=== PATIENT | female | born 1960 | race Caucasian/White ===

== ENCOUNTER → 2017-12-18 | Outpatient (CLI) | payer OTHER ==
[2017-12-18 10:19] LABS: T4, Free (Free Thyroxine) 1.11 ng/dL (0.78-2.19)
--- NOTE | 2017-12-18 11:30 | US ---
EXAMINATION TYPE: US thyroid st tissue head/neck DATE OF EXAM: 12/18/2017 COMPARISON: None at this time CLINICAL HISTORY: 57-year-old female E05.90 Thyrotoxicosis. TECHNIQUE: Multiple sonographic images of the thyroid gland are obtained. FINDINGS: GLAND SIZE: Right Lobe: 5.4 x 2.4 x 2.2 cm Overall Parenchyma: heterogenous Left Lobe: 5.2 x 2.6 x 1.7 cm Overall Parenchyma: heterogeneous Isthmus Thickness: 0.4 cm NODULES RIGHT: # of nodules measured on right: Multiple subcentimeter nodules throughout right thyroid LEFT: # of nodules measured on left: 4 1. 1.1 X 0.7 x 0.8 cm hypoechoic solid nodule at the mid pole with poorly defined margins; present with microcalcifications. This nodule is taller than wide and shows intranodular vascularity. Prior size: No prior 2. 1.3 X 0.9 x 0.6 cm hypoechoic solid nodule at the upper pole with well-defined margins; . This n odule is wider than tall and shows no intranodular vascularity. Prior size: No prior 3. 1.2 X 0.8 x 0.9 cm hypoechoic solid nodule at the lower pole with irregular margins; . This nodu le is taller than wide and shows no intranodular vascularity. Prior size: No prior 4. 1.3 X 0.8 x 1.0 cm hypoechoic mixed nodule at the mid pole with well-defined margins; . This nod ule is taller than wide and shows intranodular vascularity. Prior size: No prior ISTHMUS: # of nodules measured in the isthmus: 0 Bilateral neck scanned, no evidence of lymphadenopathy. Multiple subcentimeter nodules throughout right and left thyroid, Largest nodules on left measured ab ove. IMPRESSION: 1. Suspect multinodular goiter. 2. Numerous bilateral subcentimeter nodules. 3. 4 dominant nodules on the left ranging from 1.1 to 1.3 cm are either solid or complex solid cystic .
--- NOTE | 2017-12-19 12:12 | NM ---
EXAMINATION TYPE: NM thyroid image w uptake DATE OF EXAM: 12/19/2017 COMPARISON: Ultrasound from yesterday HISTORY: Thyrotoxicosis per order. Subclinical hyperthyroidism. Symptoms of difficulty swallowing and thyroid swelling per patient. TECHNIQUE: Thyroid iodine uptake is calculated and images performed after the oral administration of 304 uCi 1-123 Capsule. FINDINGS: There is fairly normal distribution of activity throughout the gland. The 4 hour iodine up take is calculated at 11% (normal range 8-14%). The 24-hour iodine uptake is calculated at 24% (sigifredo l range 15-35%). IMPRESSION: Normal thyroid scan and uptake.
== END ==
LOC: RADNMMAIN 09:14
PROVIDERS: ATTEND Internal Medicine Endocrinology, Diabetes & Metabolism
DX: E04.2 Nontoxic multinodular goiter (principal); E05.90 Thyrotoxicosis, unspecified without thyrotoxic crisis or storm
CPT/HCPCS: 36415; 76536; 78014; 84439; 84443; 84445; 84480

== ENCOUNTER → 2017-12-19 | Outpatient (CLI) | payer OTHER ==
--- NOTE | 2017-12-19 14:38 | MM ---
Reason for exam: screening (asymptomatic). Last mammogram was performed 4 years and 11 months ago. History: Patient is postmenopausal, is of Ashkenazi Congregational descent, and is nulliparous. Family history of breast cancer in maternal grandmother, breast cancer in maternal aunt, and breast cancer in maternal cousin. Physical Findings: A clinical breast exam by your physician is recommended on an annual basis and results should be correlated with mammographic findings. MG 3D Screening Mammo W/Cad Bilateral CC and MLO view(s) were taken. Prior study comparison: January 09, 2013, bilateral digital screening mammo w/CAD. July 25, 2007, mammogram, performed at [facility] [place]. The breast tissue is heterogeneously dense. This may lower the sensitivity of mammography. There is a new highly suspicious 1.8cm mass at middle posterior dept in the upper outer quadrant. 3mm anterior to the index mass there is a 5mm mass. 6mm posterior to the index mass there is a 1.4cm group of calcifications, new from the prior. No suspicious abnormality on the right breast. ASSESSMENT: Incomplete: need additional imaging evaluation, BI-RAD 0 RECOMMENDATION: Special view mammogram of the left breast. If lesion persists on supplemental views, image directed ultrasound is recommended. [facility] will attempt to contact patient to return for supplemental views and ultrasound if indicated.
== END ==
LOC: RADMAMWWP 09:56
PROVIDERS: ATTEND Family Medicine
DX: Z12.31 Encounter for screening mammogram for malignant neoplasm of breast (principal); Z78.0 Asymptomatic menopausal state
CPT/HCPCS: 77063; 77067

== ENCOUNTER → 2017-12-27 | Outpatient (CLI) | payer OTHER ==
--- NOTE | 2017-12-31 10:42 | MM ---
Reason for exam: additional evaluation requested from abnormal screening. Last mammogram was performed less than 1 month ago. History: Patient is postmenopausal, is of Ashkenazi Quaker descent, and is nulliparous. Family history of breast cancer in maternal grandmother, breast cancer in maternal aunt at age 40, and breast cancer in maternal cousin. Physical Findings: Nurse Summary: 3cm nodule in the left breast at 2:30 (nurse dw). MG 3D Work Up W/Cad LT Spot compression CC, spot compression MLO, CC with magnification, ML with magnification, and ML view(s) were taken of the left breast. Prior study comparison: December 19, 2017, bilateral MG 3d screening mammo w/cad. January 09, 2013, bilateral digital screening mammo w/CAD. There are scattered fibroglandular densities. Finding #1: There is an intermediate concern, suspicious high density, microlobulated round mass located 5 cm from the nipple in the upper outer quadrant, middle position of the left breast. Finding #2: There are intermediate concern, suspicious heterogeneous, grouped/clustered calcifications in the upper outer quadrant of the left breast 7cm from the nipple. These results were verbally communicated with the patient and result sheet given to the patient on 12/27/17. ASSESSMENT: Incomplete: need additional imaging evaluation, BI-RAD 0 RECOMMENDATION: Ultrasound of the left breast.
--- NOTE | 2017-12-31 10:45 | USB ---
Reason for exam: additional evaluation requested from abnormal screening. History: Patient is postmenopausal, is of Ashkenazi Roman Catholic descent, and is nulliparous. Family history of breast cancer in maternal grandmother, breast cancer in maternal aunt at age 40, and breast cancer in maternal cousin. US Breast Workup Limited LT Left limited breast ultrasound including focal area of concern, retroareolar and axilla demonstrates a 1.5 x 1.4 x 1.6cm lobular, irregular, solid, vascular lesion at 2 o'clock, correlates with mammographic findings. These results were verbally communicated with the patient and result sheet given to the patient on 12/27/17. ASSESSMENT: Highly suggestive of malignancy, BI-RAD 5 RECOMMENDATION: Surgical consultation of the left breast. Stereotactic core biopsy of the left breast. (calcifications) Ultrasound core biopsy of the left breast. (after calcification biopsy by stereo) Called Dr. Wu's office with mammographic findings and has scheduled an appointment for the patient for 01/30/18 at 9:[address] Muñiz. Biopsy scheduled for 01/09/18 at 10:00. PRELIMINARY REPORT CALLED AND FAXED TO DR. MUÑIZ ON 12/31/17.
== END | disposition home or self-care (01) ==
LOC: RADMAMWWP 06:54
PROVIDERS: ATTEND Family Medicine
DX: R92.8 Other abnormal and inconclusive findings on diagnostic imaging of breast (principal)
CPT/HCPCS: 77061; 77065

== ENCOUNTER → 2018-01-09 | Day surgery (SDC) | payer OTHER ==
[2018-01-09 11:50] VITALS: RESP 14; TEMP 98.1; BMI 22.6
[2018-01-09 12:00] VITALS: BP 165/97; PULSE 84
--- NOTE | 2018-01-09 18:13 | MM ---
EXAMINATION TYPE: MG stereo VAD BX LT DATE OF EXAM: 01/09/2018 COMPARISON: 12/28/2019 CLINICAL HISTORY: Abnormal mammogram TECHNIQUE: Stereotactic guided core biopsy of left breast, 2 locations. FINDINGS: The procedure of stereotactic guided core biopsy was explained to the patient. Benefits, alternatives, and risks were discussed. An informed consent was then obtained. [facility] was [facility]. Shortness pathway was lateral approach. Procedure was targeted and performed by Dr. Pathak. Calcifications were targeted. The skin and deeper breast tissue was anesthetized with 1% lidocaine with epinephrine. 5 core samples were obtained. Sample was evaluated and had calcifications within the sample. Clip was placed biopsy site. There was some postprocedure bleeding. Good hemostasis was obtained with direct pressure. The mass was targeted. Skin and deeper breast tissue was anesthetized with 1% lidocaine with epinephrine. 6 core samples were obtained. Clip was placed at the biopsy site. Good hemostasis was obtained with direct pressure. Patient tolerated the procedure well. Discharge instructions were discussed with the patient. The patient will follow-up with her physician for results. IMPRESSION: 1. Successful biopsy left breast calcifications. 2. Successful biopsy left breast mass. Recommendations: 1. Recommendations are pending pathology results two locations. Pathology Results: Malignant A. 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 See Surgical Pathology Cancer Case Summary. B. BREAST, LEFT, SITE B, CORE BIOPSY: Invasive poorly differentiated ductal carcinoma. See Surgical Pathology Cancer Case Summary. Recommendation Surgical consult of the left breast. EMMA
--- NOTE | 2018-01-14 08:50 | MM ---
MG Stereo VAD BX Addl LT EXAMINATION TYPE: MG stereo VAD BX LT DATE OF EXAM: 01/09/2018 COMPARISON: 12/28/2019 CLINICAL HISTORY: Abnormal mammogram TECHNIQUE: Stereotactic guided core biopsy of left breast, 2 locations. FINDINGS: The procedure of stereotactic guided core biopsy was explained to the patient. Benefits, alternatives, and risks were discussed. An informed consent was then obtained. The shortness pathway for biopsy was chosen. Shortness pathway was lateral approach. Procedure was targeted and performed by Dr. Pathak. Calcifications were targeted. The skin and deeper breast tissue was anesthetized with 1% lidocaine with epinephrine. 5 core samples were obtained. Sample was evaluated and had calcifications within the sample. Clip was placed biopsy site. There was some postprocedure bleeding. Good hemostasis was obtained with direct pressure. The mass was targeted. Skin and deeper breast tissue was anesthetized with 1% lidocaine with epinephrine. 6 core samples were obtained. Clip was placed at the biopsy site. Good hemostasis was obtained with direct pressure. Patient tolerated the procedure well. Discharge instructions were discussed with the patient. The patient will follow-up with her physician for results. IMPRESSION: 1. Successful biopsy left breast calcifications. 2. Successful biopsy left breast mass. Recommendations: 1. Recommendations are pending pathology results two locations. Pathology Results: Malignant A. 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 See Surgical Pathology Cancer Case Summary. B. BREAST, LEFT, SITE B, CORE BIOPSY: Invasive poorly differentiated ductal carcinoma. See Surgical Pathology Cancer Case Summary. RECOMMENDATION: Surgical consultation of the left breast. EMMA
== END ==
LOC: RADPROWWP 08:39 → EDSTATUS 10:00
PROVIDERS: ATTEND Surgery
DX: C50.412 Malignant neoplasm of upper-outer quadrant of left female breast (principal); Z80.3 Family history of malignant neoplasm of breast
CPT/HCPCS: 88305; 19081; 19082; A4648

== ENCOUNTER → 2018-01-23 | Outpatient (CLI) | payer OTHER ==
--- NOTE | 2018-01-24 09:51 | BMR ---
EXAMINATION TYPE: MR breast BILAT wo/w con DATE OF EXAM: 01/23/2018 COMPARISON: Three-D bilateral breast screening mammogram December 19, 2017 BI-RADS 0. Three-D diagnostic l eft breast mammogram December 27, 2017 BI-RADS 0. Diagnostic left breast ultrasound December 27, 2017 BI-RADS 5 . HISTORY: Left breast cancer newly diagnosed on stereotactic guided core biopsy January 09, 2018 CONTRAST: Multiplanar, multisequence images of the breasts were acquired utilizing 6.5 mL intravenous Gadavist gadolinium contrast. TECHNIQUE: A series of fat and water weighted images in the long and short axis views of both breasts are obtained in conjunction with dynamic contrast MRI with subtraction technique. Three-dimensional and additional postprocessing imaging is created on independent workstation and reviewed during offi cial interpretation of this study. FINDINGS: Scattered fibroglandular tissue is redemonstrated throughout both breasts most prominent la teral aspect of both nipples anterior depth. Post contrast images show fairly mild symmetric background enhancement. No suspicious intramammary ad enopathy is identified. No suspicious cystic lesions are seen bilaterally. With regard to the right breast no pathologic enhancement is present. There are benign-appearing righ t axillary lymph nodes seen. Chest wall is intact. With regard to the left breast there is oval well-circumscribed post procedure hematoma in the wire mesh filter fabricator ior depth outer quadrant above level of nipple measuring roughly 1.6 x 1.5 cm image [address] inferior anterior and lateral to this there is artifact from biopsy clip seen best subtraction coral ge 194 series 702 this is along medial margin of an area of spiculated masslike enhancement that benjamin ures 2.2 x AP 1.5 cm transverse by roughly 1.8 cm craniocaudal dimension estimated 7.2 cm distance fr om nipple by computer 7:00 position. Measurements slightly larger than identified on ultrasound. Ther e is second enhancing slightly spiculated 4 mm nodule along the anterior inferior medial margin of th is seen best image 224 series 702 which corresponds to area of mammogram abnormality. There is additi onal tiny 3 mm nodule along posterior medial margin near level of biopsy clip image 194 series 702. T here is artifact from second biopsy clip along the lateral margin of the post procedure hematoma imag e 230 series 702 corresponding to the group of calcifications. No suspicious residual enhancement at this level is seen. No suspicious residual calcifications are noted on postprocedure mammogram after stereotactic biopsy. Remainder of left breast shows no additional area of multicentric pathologic enhancement. No suspicio us skin thickening is seen. There are prominent but predominantly subcentimeter left axillary lymph n odes, largest is borderline in the medial inferior aspect adjacent to pectoralis muscle seen best coral ge 32 series 301 measuring 11 x 8 mm. IMPRESSION: Biopsy-proven malignant lesion is redemonstrated. MRI findings correlate with recent mamm ogram and ultrasound. Post procedure hematoma noted. No multicentric neoplasm or area suspicious for neoplasm in the right breast. BI-RADS 2 benign findings right breast BI-RADS 6 biopsy-proven malignancy left breast Recommendation: Appropriate surgical management newly diagnosed left breast neoplasm.
== END | disposition home or self-care (01) ==
LOC: RADMRIMAIN 10:09
PROVIDERS: ATTEND Surgery
DX: C50.412 Malignant neoplasm of upper-outer quadrant of left female breast (principal); L76.31 Postprocedural hematoma of skin and subcutaneous tissue following a dermatologic procedure
CPT/HCPCS: 77059; 0159T; A9581

== ENCOUNTER → 2018-02-07 | Day surgery (SDC) | payer OTHER ==
[2018-02-03 15:56] VITALS: BMI 22.6
[~2018-02-07] MED LIST: ALPRAZolam 0.5 MG TAB PO ONE; DEXAMETHASONE SOD PHOSPHATE 10 MG/ML 1 ML VIAL IV ONE; HEPARIN SODIUM,PORCINE 5,000 UNIT/ML 1 ML VIAL SQ ONE; HYDROcodone/APAP 5-325MG 1 EACH TAB PO ONE; HYDROcodone/APAP 5-325MG 1 EACH TAB PO PRN; HYDROmorphone (PF) 1 MG/ML ONE; HYDROmorphone 0.5 MG/0.5 ML SYRINGE IVP PRN; KETOROLAC 30 MG/ML 1 ML VIAL IVP ONE; LACTATED RINGERS 1,000 ML IV ONE; LACTATED RINGERS 1,000 ML IV SCH; LIDOCAINE 1% 20 ML VIAL (10MG/ML) FOR IV START INTRADERMA PRN; LIDOCAINE 1% INJ 10MG/ML (20 ML MDV) ONE; LIDOCAINE 1% INJ 10MG/ML (20 ML MDV) SQ ONE; METHYLENE BLUE 10 MG/ML (10 ML VIAL) INJ ONE; MIDAZOLAM 2 MG/2 ML VIAL IV PRN; MIDAZOLAM 2 MG/2 ML VIAL ONE; NALOXONE 0.4 MG/ML 1 ML VIAL IV PRN; ONDANSETRON 4 MG/2 ML VIAL IVP ONE; PROPOFOL 10 MG/ML 20 ML VIAL IV ONE; Pre Op ABX Message 1 EACH MISC MISCELLANE ONE; SCOPOLAMINE 1.5MG/72HR PATCH TRANSDERM ONE; SODIUM BICARB 4% 5 ML VIAL (0.48 MEQ/ML) MISCELLANE ONE; ceFAZolin 2,000 MG in DEXTROSE/WATER 1 50ML.BAG IVPB ONE; ceFAZolin IN SWFI 2 GM/20 ML SYRINGE IVP ONE; ePHEDrine SULFATE/0.9% NACL/PF 50 MG/5 ML SYRINGE IV ONE; fentaNYL (PF) 50 MCG/ML 2 ML AMP ONE
[2018-02-07 07:12] VITALS: RESP 16
--- NOTE | 2018-02-07 07:47 | P.HPADDEND ---
H&P Addendum H&P Addendum Date: 02/07/18 Patient here today for left breast lumpectomy. Patient had recent biopsy showing poorly differentiated invasive ductal cancer. Upon review of her films these 2 areas seem to be confluent. We'll proceed with left breast lumpectomy with wire localization and sentinel lymph node biopsy with injection. Possible completion axillary node dissection. The risks of bleeding, infection, recurrence, potential need for additional surgery, seroma, scarring, pain, wound formation, nerve injury, lymphedema were discussed. She understands and wishes to proceed.
--- NOTE | 2018-02-07 11:16 | NM ---
EXAMINATION TYPE: NM sentinel node injection DATE OF EXAM: 02/07/2018 COMPARISON: NONE HISTORY: Left breast cancer TECHNIQUE AND FINDINGS: The procedure of sentinel lymph node injection was explained to the patient. The benefits, alternatives, and risks were discussed. An informed consent was then obtained. Overlying skin is cleaned with sterile alcohol. Following this, 530 uCi Tc99m Tilmanocept was inject ed into upper outer quadrant position surrounding the left nipple intradermally. The patient tolerated the procedure well without any immediate complication. The patient was kept in the radiology department for short stay after the procedure and then taken to surgery for surgical p rocedure what is presumed intraoperative gamma probe will be used for sentinel lymph node detection. IMPRESSION: Left breast radiotracer injection for sentinel node localization as above.
[2018-02-07 11:28] VITALS: TEMP 97.7
--- NOTE | 2018-02-07 11:40 | P.OP ---
Date of Procedure: 02/07/18 Procedure(s) Performed: PREOPERATIVE DIAGNOSIS: Left breast cancer POSTOPERATIVE DIAGNOSIS: Same PROCEDURE: Left Breast wire localization lumpectomy with sentinel lymph node biopsy SURGEON: Mary Kay EBL: Minimal ANESTHESIA: General COMPLICATIONS: None OPERATIVE PROCEDURE: Patient was placed on the operating room table in the supine position. 2 mL of methylene blue was injected into the subareolar space. The breast was then massaged for 5 minutes. The left axilla was addressed at that time. The hot spot in the right axilla was identified. A small curvilinear incision was made using the scalpel. Dissection down through the subcutaneous tissues took place using electrocautery. Using the neoprobe I identified a total of 1 sentinel lymph node. This had a normal appearance and size. No additional lymph nodes were identified within the axilla. Frozen section revealed a small 1.5 mm micrometastasis. The case was discussed with oncology. We decided not to proceed with axillary node dissection. No bleeding was seen. The subcutaneous tissues were closed using 3-0 Vicryl sutures. The skin was closed using 4-0 Monocryl sutures. The patient had 2 wires entering the breast at 3:00. An incision was made adjacent to the more lateral wire. As I was dissecting beneath the skin I felt that the tumor was very close to the skin at the site of the second wire. I decided to remove an elliptical portion of skin where the tumor was most superficial. I then dissected circumferentially around the wire sites and the full mass circumferentially. Dissection took place at our deepest extent down to the chest wall. Clips were used to demarcate the lumpectomy cavity. The breast tissue was elevated off of the fascia medially and laterally so that the lumpectomy cavity could be properly closed. Once this took place the subcutaneous tissues were closed using 3-0 Vicryl sutures. The skin was closed using a running 4-0 Monocryl stitch. Dermabond and tape was applied. The lumpectomy specimen was then painted the 6 appropriate colors. A specimen radiograph confirmed both clips within the specimen. DISPOSITION: Stable to recovery room
[2018-02-07 13:18] VITALS: BP 131/72; PULSE 89
--- NOTE | 2018-02-11 16:24 | MM ---
EXAMINATION TYPE: MG pre op needle loc LT, MG surgical specimen LT DATE OF EXAM: 02/07/2018 COMPARISON: MR breast 01/23/2018 CLINICAL HISTORY: Abnormal mammogram TECHNIQUE: Needle localization with wire placement and surgical excision of area of concern in the left breast. FINDINGS: The procedure of needle localization with wire placement and than surgical excision was explained to the patient. Benefits, alternatives, and risks were discussed. An informed consent was then obtained. Using mammographic technique the lesions were identified. The overlying skin was prepped and draped in usual sterile fashion. Lidocaine buffered with bicarbonate was used as anesthetic into the skin and subcutaneous tissue up to the level of area of concern. A 5 cm and 7 cm needle were used. Were advanced. Subsequent 90 degrees mammogram show the needle to be in satisfactory position relative to the targeted area. At this point, wires were placed and the needles withdrawn. The wire was fixed to patient's skin. Images were marked for surgeon. The patient tolerated the procedure well without any immediate complication. The patient was kept in the radiology department for short stay after the procedure and then taken to surgery for surgical excision. Masses and wires are identified in specimen mammogram. The patient was kept in hospital for short stay after the procedure and then discharged home in stable condition. IMPRESSION: Successful, uncomplicated needle localization with wire placements and surgical excision of masses and markers in the left breast, full pathology results to follow. Pathology Results: Malignant A. SENTINEL LYMPH NODE #1, LEFT BREAST, EXCISION: Positive for micrometastatic adenocarcinoma in node parenchyma and subcapsular sinus areas. B. LEFT BREAST, LUMPECTOMY: Invasive poorly differentiated duct carcinoma with microscopic foci of residual duct carcinoma in situ. A second 1.6 cm focus of poorly differentiated infiltrating duct carcinoma is identified away from origin biopsy cavity. The second nodule of invasive carcinoma is approximately 0.65 cm away from the anterior blue inked margin of resection immediately adjacent to skin and approximately 4.5 mm from the purple inked posterior margin of resection. See Surgical Pathology Cancer Case Summary. Recommendation Appropriate oncologic/radiation management. MTDD
== END ==
LOC: OR 06:54
PROVIDERS: ATTEND Surgery
DX: C50.412 Malignant neoplasm of upper-outer quadrant of left female breast (principal); C77.3 Secondary and unspecified malignant neoplasm of axilla and upper limb lymph nodes; Z80.3 Family history of malignant neoplasm of breast; Z79.2 Long term (current) use of antibiotics
CPT/HCPCS: 19301; 38525; 88342; 88331; 88307; 88341; 76098; 19281; 38792; A9520; J2250; J1100; J2405; J2001; Q9968; J3010; J1885; J1170 ×2; J2704; J0690

== ENCOUNTER → 2018-06-12 | Outpatient (CLI) | payer OTHER ==
--- NOTE | 2018-06-12 14:34 | US ---
EXAMINATION TYPE: US venous doppler duplex UE LT DATE OF EXAM: 06/12/2018 COMPARISON: NONE CLINICAL HISTORY: M79.622 Pain lt arm, R22.32 Swelling lt arm. Left arm pain. No swelling or redness . No hx of DVT. On aspirin. SIDE PERFORMED: Left Left Arm: Negative for DVT Grayscale, color doppler, spectral doppler imaging performed of the deep veins of the left upper extr emity. There is normal flow, compressibility and vascular waveforms. IMPRESSION: No ultrasound evidence for acute deep or superficial vein thrombus in the left upper extr emity.
== END | disposition home or self-care (01) ==
LOC: RADUSWWP 13:23
PROVIDERS: ATTEND Internal Medicine Hematology & Oncology
DX: M79.622 Pain in left upper arm (principal); R22.32 Localized swelling, mass and lump, left upper limb

== ENCOUNTER → 2018-08-22 | Outpatient (CLI) | payer OTHER ==
--- NOTE | 2018-08-22 17:03 | BD ---
EXAMINATION TYPE: Axial Bone Density DATE OF EXAM: 08/22/2018 COMPARISON: NONE CLINICAL HISTORY: Height: 65 Weight: 150.4 FRAX RISK QUESTIONS: Alcohol (3 or more units per day): no Family History (Parent hip fracture): no Glucocorticoids (More than 3mos): no (Ex: prednisone, prednisolone, methylprednisolone, dexamethasone, and hydrocortisone). History of Fracture in Adulthood: yes Secondary Osteoporosis: 1. Type 1 Diabetes: no 2. Hyperthyroidism: no 3. Menopause before 45: no 4. Malnutrition: no 5. Chronic liver disease: no Rheumatoid Arthritis: no Current Tobacco Use: no RISK FACTORS HISTORY OF: Family History of Osteoporosis: yes Active: yes Diet low in dairy products/other sources of calcium: yes Postmenopausal woman: age48 Lost more than 2 inches in height since high school: no MEDICATIONS: Additional History: pt finished chemo and radiation treatments in -18 for breast cancer EXAM MEASUREMENTS: Bone mineral densitometry was performed using the Cantimer System. Bone mineral density as measured about the Lumbar spine is: ----- L1-L4(G/cm2): 0.969 T Score Values are as follows: ----- L2: -1.2 ----- L3: -1.9 ----- L4: -2.8 ----- L1-L4: -1.8 Bone mineral density : baseline Bone mineral density about the R hip (g/cm2): 0.730 Bone mineral density about the L hip (g/cm2): 0.672 T Score values are as follows: -----R Neck: -2.2 -----L Neck: -2.6 -----R Total: -1.5 -----L Total: -1.9 Bone mineral density : baseline IMPRESSION: Osteoporosis (T Score less than -2.5). There is increased fracture risk and therapy is usually indicated based on age. Re-Screen 1-2 years. NOTE: T-SCORE=SD OF THE YOUNG ADULT MEAN.
== END | disposition home or self-care (01) ==
LOC: RADBDWWP 07:38
PROVIDERS: ATTEND Internal Medicine Hematology & Oncology
DX: M81.0 Age-related osteoporosis without current pathological fracture (principal); N95.1 Menopausal and female climacteric states; C50.412 Malignant neoplasm of upper-outer quadrant of left female breast; Z79.890 Hormone replacement therapy
CPT/HCPCS: 77080

== ENCOUNTER → 2019-01-21 | Outpatient (CLI) | payer OTHER ==
--- NOTE | 2019-01-21 08:05 | MM ---
Reason for exam: additional evaluation requested from abnormal screening. Last mammogram was performed 1 year and 1 month ago. History: Patient is postmenopausal, has history of breast cancer at age 57, is of Ashkenazi Confucianism descent, and is nulliparous. Family history of breast cancer in maternal grandmother, breast cancer in maternal aunt at age 40, and breast cancer in maternal cousin. Malignant MG pre op needle loc LT of the left breast, February 07, 2018. Lumpectomy of the left breast, February 07, 2018. Malignant MG stereo VAD BX addl LT of the left breast, January 09, 2018. Malignant MG stereo VAD BX LT of the left breast, January 09, 2018. Taking estrogen beginning at age 58. Physical Findings: Nurse did not find any significant physical abnormalities on exam. MG 3D Diag Mammo W/Cad ROSIE Bilateral CC and MLO view(s) were taken. Prior study comparison: December 27, 2017, left breast MG 3d work up w/cad LT. December 19, 2017, bilateral MG 3d screening mammo w/cad. The breast tissue is heterogeneously dense. This may lower the sensitivity of mammography. Finding: Architectural distortion in the upper outer quadrant of the left breast consistent with surgery. Left skin thickening. These results were verbally communicated with the patient and result sheet given to the patient on 01/21/19. ASSESSMENT: Benign, BI-RAD 2 RECOMMENDATION: Follow-up diagnostic mammogram of both breasts in 1 year.
== END | disposition home or self-care (01) ==
LOC: RADMAMWWP 06:44
PROVIDERS: ATTEND Internal Medicine Hematology & Oncology
DX: Z85.3 Personal history of malignant neoplasm of breast (principal)
CPT/HCPCS: 77062; 77066

== ENCOUNTER → 2020-01-26 | Outpatient (CLI) | payer OTHER ==
--- NOTE | 2020-01-26 09:18 | MM ---
Reason for exam: additional evaluation requested from prior study. Last mammogram was performed 1 year ago. History: Patient is postmenopausal, has history of breast cancer at age 57, is of Ashkenazi Yazidism descent, and is nulliparous. Family history of breast cancer in maternal grandmother, breast cancer in maternal aunt at age 40, and breast cancer in maternal cousin. Malignant MG pre op needle loc LT of the left breast, February 07, 2018. Lumpectomy of the left breast, February 07, 2018. Malignant MG stereo VAD BX addl LT of the left breast, January 09, 2018. Malignant MG stereo VAD BX LT of the left breast, January 09, 2018. Taking estrogen for 2 years beginning at age 58. Physical Findings: Nurse did not find any significant physical abnormalities on exam. MG 3D Diag Mammo W/Cad ROSIE Bilateral CC and MLO view(s) were taken. Prior study comparison: January 21, 2019, bilateral MG 3d diag mammo w/cad ROSIE. December 27, 2017, left breast MG 3d work up w/cad LT. The breast tissue is heterogeneously dense. This may lower the sensitivity of mammography. Finding #1: There is stable thick architectural distortion in the upper outer quadrant of the left breast consistent with known lumpectomy and treatment changes. Finding #2: There are dystrophic calcifications in the subareolar position of the left breast. There is no discrete abnormality. These results were verbally communicated with the patient and result sheet given to the patient on 01/26/20. ASSESSMENT: Benign, BI-RAD 2 RECOMMENDATION: Follow-up diagnostic mammogram of both breasts in 1 year.
== END | disposition home or self-care (01) ==
LOC: RADMAMWWP 08:14
PROVIDERS: ATTEND Internal Medicine Hematology & Oncology
DX: Z85.3 Personal history of malignant neoplasm of breast (principal)
CPT/HCPCS: 77062; 77066

== ENCOUNTER 2020-04-13 10:28 | Emergency (ER) | payer OTHER ==
[2020-04-13 10:40] VITALS: BP 145/89; PULSE 110; RESP 16; TEMP 98.4
[2020-04-13] MEDS ORDERED: HYDROcodone/APAP 5-325MG 1 EACH TAB PO STA (10:47)
--- NOTE | 2020-04-13 11:10 | XR ---
EXAMINATION TYPE: XR chest 2V DATE OF EXAM: 04/13/2020 COMPARISON: 01/09/2013 HISTORY: 59-year-old female fall and left rib pain TECHNIQUE: PA and lateral views FINDINGS: The cardiomediastinal silhouette, aorta, and pulmonary vasculature are within normal limits. Lungs an d pleural spaces are clear. Surgical clips in the left axilla. No consolidation, pneumothorax, or ple ural effusion. No evident displaced left rib fracture. Anterior wedging of a vertebral body at the th oracolumbar junction is new as compared to 01/09/2013 but several age indeterminate. IMPRESSION: 1. No acute cardiopulmonary process. 2. Anterior wedging of a vertebral body at the thoracolumbar junction is new from 2012 but still age indeterminate. Clinically correlate.
--- NOTE | 2020-04-13 11:12 | XR ---
EXAMINATION TYPE: XR wrist complete LT DATE OF EXAM: 04/13/2020 COMPARISON: NONE HISTORY: 59-year-old female with pain after fall and injury TECHNIQUE: 3 views FINDINGS: Moderate degenerative change of the first CMC joint. Corticated bone fragment at the ulnar styloid pr ocess could represent an accessory ossicle or sequela of remote injury. There is a comminuted fracture of the distal radial metaphysis and epiphysis with intra-articular ext ension. Mild regional displacement of the volar fracture fragments but no significant incongruence of the articular surface. Slight impaction with a positive ulnar variance and generalized soft tissue s welling. IMPRESSION: 1. Comminuted, mildly impacted fracture of the distal radial metaphysis and epiphysis with intra-fidel cular extension into the radiocarpal joint. Mild displacement of a volar fracture fragment. 2. 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
[2020-04-13] MEDS ORDERED: ACET/COD 300 MG/30 MG STARTER PACK 6 TAB BTL PO STA (11:57)
--- NOTE | 2020-04-13 11:58 | ED ---
Upper Extremity HPI - General Chief Complaint: Extremity Injury, Upper Stated Complaint: Fall Left hand injury Time Seen by Provider: 04/13/20 10:35 Source: patient, RN notes reviewed Mode of arrival: ambulatory Limitations: no limitations - History of Present Illness Initial Comments: This a 59-year-old female presents emergency Department chief complaint of fall. Patient states she fell yesterday walking. Patient states that his left wrist pain, left rib pain no head neck or back pain. Denies any bowel bladder incontinence or retention. Her difficulty in really no hip pain or lower extremity injury. - Related Data Home Medications Medication Instructions Recorded Confirmed Amoxicillin 875 mg PO Q12HR 02/03/18 02/07/18 Previous Rx's Medication Instructions Recorded Hydrocodone/Acetaminophen [Muir 1 - 2 each PO Q4HR PRN #12 tab 02/07/18 5-325] Allergies Allergy/AdvReac Type Severity Reaction Status Date / Time No Known Allergies Allergy Verified 04/13/20 10:37 Review of Systems ROS Statement: Those systems with pertinent positive or pertinent negative responses have been documented in the HPI. ROS Other: All systems not noted in ROS Statement are negative. Past Medical History Past Medical History: Cancer Additional Past Medical History / Comment(s): current ear sx with antibiotics,c hronic ear problems,lt breast carcinoma, [place] syndrome History of Any Multi-Drug Resistant Organisms: None Reported Past Surgical History: Orthopedic Surgery Additional Past Surgical History / Comment(s): 1982 ear surgery-removal styloid bone Past Anesthesia/Blood Transfusion Reactions: Postoperative Nausea & Vomiting (PONV) Past Psychological History: No Psychological Hx Reported Smoking Status: Never smoker Past Alcohol Use History: Daily Past Drug Use History: Marijuana - Past Family History Mother Family Medical History: Myocardial Infarction ([place]) General Exam Limitations: no limitations General appearance: alert, in no apparent distress Head exam: Present: atraumatic, normocephalic, normal inspection Neck exam: Present: normal inspection, full ROM. Absent: tenderness, meningismus, lymphadenopathy Respiratory exam: Present: normal lung sounds bilaterally, chest wall tenderness (Mild anterior to lateral left). Absent: respiratory distress, wheezes, rales, rhonchi, stridor Cardiovascular Exam: Present: normal rhythm, tachycardia, normal heart sounds. Absent: systolic murmur, diastolic murmur, rubs, gallop, clicks GI/Abdominal exam: Present: soft, normal bowel sounds. Absent: distended, tenderness, guarding, rebound, rigid Extremities exam: Present: other (Left wrist, hand there is moderate swelling ne urovascular intact patient has range of motion of all digits. There is no proximal forearm tenderness remaining extremity exam within normal limits) Back exam: Present: full ROM. Absent: tenderness, paraspinal tenderness, vertebral tenderness Neurological exam: Present: alert, oriented X3, CN II-XII intact, reflexes normal. Absent: motor sensory deficit Skin exam: Present: warm, dry, intact, normal color. Absent: rash Course Vital Signs 04/13/20 10:37 Temperature 98.4 F Pulse Rate 110 H Respiratory 16 Rate Blood Pressure 145/89 O2 Sat by Pulse 100 Oximetry Procedures - Orthopedic Splinting/Casting Injury #1 Side: left Upper Extremity Injury Location: short arm, wrist Upper Extremity Immobilizer: volar splint, synthetic pre-padded splint Medical Decision Making - Medical Decision Making X-ray shows comminuted fracture left distal radius, x-ray of the ribs do not show any evidence of pneumothorax or obvious rib fracture. There is a change and possible wedge deformity though she has no vertebral tenderness and no complaint of back pain. Disposition Clinical Impression: Fracture of left distal radius Disposition: HOME SELF-CARE Condition: Stable Instructions (If sedation given, give patient instructions): Arm Fracture in Adults (ED) Additional Instructions: Please return to the Emergency Department if symptoms worsen or any other concerns. Is patient prescribed a controlled substance at d/c from ED?: No Referrals: Humble Wu DO [Primary Care Provider] - 1-2 days Adalberto Blair MD [STAFF PHYSICIAN] - 1-2 days Time of Disposition: 11:58
== END 2020-04-13 12:07 | disposition home or self-care (01) ==
LOC: EC 10:28
DX: S52.502A Unspecified fracture of the lower end of left radius, initial encounter for closed fracture (principal); Z85.3 Personal history of malignant neoplasm of breast; W01.0XXA Fall on same level from slipping, tripping and stumbling without subsequent striking against object, initial encounter; Y93.01 Activity, walking, marching and hiking
CPT/HCPCS: 29125; 71046; 99283

== ENCOUNTER → 2020-04-14 | Outpatient (CLI) | payer OTHER ==
--- NOTE | 2020-04-14 13:33 | CT ---
EXAMINATION TYPE: CT wrist LT wo con DATE OF EXAM: 04/14/2020 COMPARISON: Left wrist x-ray from yesterday. HISTORY: Left wrist pain post injury, intra-articular distal radial comminuted fracture. CT DLP: 265.3 mGycm Automated exposure control for dose reduction was used. FINDINGS: Overlying splint material is now present. There is acute comminuted minimally displaced intra-articular fracture through the distal radial meta -epiphysis. There is a 10 x 8 mm nondisplaced fracture fragment along the ulnar volar aspect axial im age 41. There are a few tiny fracture fragments along the dorsal aspect. No significant step off or i mpaction of the articular surface of the distal radius with the scaphoid and lunate is identified. There is well-corticated 3 mm ossific density from the ulnar styloid could reflect old avulsion type fracture or accessory ossicle redemonstrated. Carpal joint spaces are maintained. Mild to moderate narrowing and spurring at base of first metacarp al redemonstrated. Mild to moderate subcutaneous edema and soft tissue swelling greatest over the wrist joint through th e carpal bones and proximal hand and more prominent along the dorsal surface. There is additional sub cutaneous edema and soft tissue swelling along the distal ulnar diaphysis volar surface of the distal radius. Small foci of air along the dorsal aspect of the distal forearm are also noted. IMPRESSION: As above.
== END | disposition home or self-care (01) ==
LOC: RADCTMAIN 12:23
PROVIDERS: ATTEND Orthopaedic Surgery
DX: M25.532 Pain in left wrist (principal); S52.572A Other intraarticular fracture of lower end of left radius, initial encounter for closed fracture

== ENCOUNTER → 2020-08-24 | Outpatient (CLI) | payer OTHER ==
--- NOTE | 2020-08-24 15:17 | BD ---
EXAMINATION TYPE: Axial Bone Density DATE OF EXAM: 08/24/2020 COMPARISON: NONE CLINICAL HISTORY: 60 YR OLD FEMALE.....ICD-10 CODE: Z79.890 POST MENOPAUSAL Height: 64.4 Weight: 140 FRAX RISK QUESTIONS: History of Fracture in Adulthood: YES RISK FACTORS HISTORY OF: History of Wrist Fracture: LT WRIST, 2019 Family History of Osteoporosis: PATERNAL GRANDMOTHER Active: YES Diet low in dairy products/other sources of calcium: YES Postmenopausal woman: YES AT 45 YRS OLD Hyperparathyroidism: NO Adrenal Insufficiency: NO MEDICATIONS: Prednisone or other steroids: ONLY IN THE PAST Additional Medications: HX OF LT BREAST CA, HX OF CHEMO AND RADIATION, 2018, VIT D AND CALCIUM, LETR OZOLE Additional History: HX OF LT BREAST LUMPECTOMY, CA, 2018 EXAM MEASUREMENTS: Bone mineral densitometry was performed using the [employer] System. Bone mineral density as measured about the Lumbar spine is: ----- L1-L4(G/cm2): 1.039 T Score Values are as follows: ----- L1: -0.3 ----- L2: -0.6 ----- L3: -1.5 ----- L4: -2.0 ----- L1-L4: -1.2 Bone mineral density FIRST BONE DENSITY......BASELINE STUDY Bone mineral density about the R hip (g/cm2): 0.805 Bone mineral density about the L hip (g/cm2): 0.760 T Score values are as follows: -----R Neck: -2.1 -----L Neck: -2.3 -----R Total: -1.6 -----L Total: -2.0 Bone mineral density BASELINE STUDY FRAX%s: THERE IS A 18.3% CHANCE FOR A MAJOR OSTEOPOROTIC FX AND A 3.1% FOR HIP......PROBABILITY FO R FX IN 10 YRS TIME IMPRESSION: Osteopenia (T Score between -2.5 and -1). There is slightly increased risk of fracture and the patient may be considered for treatment. Re-Screen 2-5 years. NOTE: T-SCORE=SD OF THE YOUNG ADULT MEAN.
== END | disposition home or self-care (01) ==
LOC: RADBDWWP 09:37
PROVIDERS: ATTEND Internal Medicine Hematology & Oncology
DX: C50.412 Malignant neoplasm of upper-outer quadrant of left female breast (principal); M85.80 Other specified disorders of bone density and structure, unspecified site; Z79.890 Hormone replacement therapy
CPT/HCPCS: 77080

== ENCOUNTER → 2021-01-27 | Outpatient (CLI) | payer OTHER ==
--- NOTE | 2021-01-27 12:06 | MM ---
Reason for exam: additional evaluation requested from prior study. Last mammogram was performed 1 year ago. History: Patient is postmenopausal, has history of breast cancer at age 57, is of Ashkenazi Orthodox descent, and is nulliparous. Family history of breast cancer in maternal grandmother, breast cancer in maternal aunt at age 40, and breast cancer in maternal cousin. Malignant MG pre op needle loc LT of the left breast, February 07, 2018. Lumpectomy of the left breast, February 07, 2018. Malignant MG stereo VAD BX addl LT of the left breast, January 09, 2018. Malignant MG stereo VAD BX LT of the left breast, January 09, 2018. Taking estrogen for 2 years beginning at age 58. Physical Findings: Nurse did not find any significant physical abnormalities on exam. MG 3D Diag Mammo W/Cad ROSIE Bilateral CC and MLO view(s) were taken. Prior study comparison: January 26, 2020, bilateral MG 3d diag mammo w/cad ROSIE. January 21, 2019, bilateral MG 3d diag mammo w/cad ROSIE. There are scattered fibroglandular densities. Left post lumpectomy and radiation change. These results were verbally communicated with the patient and result sheet given to the patient on 01/27/21. ASSESSMENT: Benign, BI-RAD 2 RECOMMENDATION: Follow-up diagnostic mammogram of both breasts in 1 year.
== END | disposition home or self-care (01) ==
LOC: RADMAMWWP 10:53
PROVIDERS: ATTEND Internal Medicine Hematology & Oncology
DX: N64.89 Other specified disorders of breast (principal); Z78.0 Asymptomatic menopausal state; Z80.3 Family history of malignant neoplasm of breast; Z85.3 Personal history of malignant neoplasm of breast
CPT/HCPCS: 77062; 77066

== ENCOUNTER → 2021-07-19 | Outpatient (CLI) | payer MEDICARE, OTHER ==
--- NOTE | 2021-07-19 09:03 | CT ---
EXAMINATION TYPE: CT iac w con DATE OF EXAM: 07/19/2021 COMPARISON: NONE HISTORY: Hearing loss bilateral per order. Symptoms of headache and history of breast cancer. CT DLP: 150.00 mGycm. Automated Exposure Control for Dose Reduction was Utilized. TECHNIQUE: CT scan of internal auditory canal is performed with IV contrast, thin cut axial images ar e obtained, coronal reformatted images are also reviewed. Patient injected with 100 cc of Isovue-300 for the study. FINDINGS: The external auditory canals are patent bilaterally. Mastoid air cells show no evidence of abnormal opacification bilaterally. The middle ear ossicles are symmetric and unremarkable. There is no evidence of suspicious surroundi ng soft tissue density to suggest cholesteatoma. The scutum is preserved bilaterally. The cochlea and the semicircular canals are symmetric and unremarkable. Satisfactory ossific coverin g of the superior semicircular canals bilaterally is present. Vestibular aqueduct and internal caroti d canal appear unremarkable. Mild peripheral calcified plaque of the distal internal carotid arterie s bilaterally incidentally noted. No suspicious enhancement or enhancing masses present. Temporomandibular joints are maintained bilaterally. Visualized paranasal sinuses are grossly clear. Visualized portion brain parenchyma is felt within normal limits. The nasal septum slightly deviated to left of midline. IMPRESSION: No significant abnormality seen to account for patient's symptoms.
== END | disposition home or self-care (01) ==
LOC: RADCTMAIN 07:24
PROVIDERS: ATTEND Otolaryngology
DX: H91.93 Unspecified hearing loss, bilateral (principal); R51.9 Headache, unspecified; Z85.3 Personal history of malignant neoplasm of breast
CPT/HCPCS: 70481; Q9967

== ENCOUNTER → 2022-01-29 | Outpatient (CLI) | payer MEDICARE, OTHER ==
--- NOTE | 2022-01-30 20:18 | MM ---
Reason for Exam: Screening (asymptomatic). Last screening mammogram was performed 12 month(s) ago. Patient History: Menarche at age 20. Patient has no children. Postmenopausal. Breast cancer, left, age 57. Previous DCIS pathology result. Ashkenazi Denominational. Previous chest radiation therapy at age 57. Previous chemotherapy at age 57. Currently using Estrogen, beginning at age 58 for 2 years. 02/07/2018, Lumpectomy on the Left side. 02/07/2018, Malignant Core Biopsy on the left side. 01/09/2018, Malignant Core Biopsy on the left side. 01/09/2018, Malignant Core Biopsy on the left side. Maternal grandmother had breast cancer, age 71. Maternal cousin had breast cancer, age 38. Maternal aunt had breast cancer, age 40. Prior Study Comparison: 01/21/2019 Bilateral Diagnostic Mammogram, [facility]. 01/26/2020 Bilateral Diagnostic Mammogram, [facility]. 01/27/2021 Bilateral Diagnostic Mammogram, [facility]. Tissue Density: There are scattered fibroglandular densities. Findings: Analyzed By CAD. Postsurgical and posttreatment change left breast. Benign oil cyst calcifications anteriorly in the left breast. No significant change from prior exams. Overall Assessment: Benign, BI-RAD 2 Management: Screening Mammogram of both breasts in 1 year. 1. Patient should continue monthly self breast exams. 2. A clinical breast exam by your physician is recommended on an annual basis. 3. This exam should not preclude additional follow-up of suspicious palpable abnormalities. Electronically signed and approved by: Zina Bowser M.D. Radiologist
== END | disposition home or self-care (01) ==
LOC: RADMAMWWP 09:46
PROVIDERS: ATTEND Internal Medicine Hematology & Oncology
DX: Z12.31 Encounter for screening mammogram for malignant neoplasm of breast (principal)
CPT/HCPCS: 77063; 77067

== ENCOUNTER → 2022-11-21 | Outpatient (CLI) | payer MEDICARE, OTHER ==
--- NOTE | 2022-11-21 18:35 | BD ---
EXAMINATION TYPE: s Bone Density DATE OF EXAM: 11/21/2022 CLINICAL HISTORY: 62 years old Female. ICD-10 CODE: c50.412 MALIG NEOPLASM OF UPPER-OUTER QUADRANT O F Height: 5 ft 5 in Weight: 145 FRAX RISK QUESTIONS: Alcohol (3 or more units per day): no Family History (Parent hip fracture): no Glucocorticoids (More than 3mos): yes (Ex: prednisone, prednisolone, methylprednisolone, dexamethasone, and hydrocortisone). History of Fracture in Adulthood: yes Secondary Osteoporosis: 1. Type 1 Diabetes: no 2. Hyperthyroidism: no 3. Menopause before 45: no 4. Malnutrition: no 5. Chronic liver disease: no Rheumatoid Arthritis: no Current Tobacco Use: no RISK FACTORS HISTORY OF: History of Wrist Fracture: left When: 2019 Surgery to Spine/Hip(right/left)/Wrist (right/left): no Family History of Osteoporosis: yes Active: yes Diet low in dairy products/other sources of calcium: no Postmenopausal woman: yes Take estrogen and/or progesterone medications: no Lost more than 2 inches in height since high school: no Frequent falls: no Poor Health: good Hyperparathyroidism: no Adrenal Insufficiency: no MEDICATIONS: Additional Medications: hormone funmi Additional History: breast cancer ,lumpectomy radiation and chemo 2018 EXAM MEASUREMENTS: Bone mineral densitometry was performed using the [employer] System. Bone mineral density as measured about the Lumbar spine is: ----- L1-L4(G/cm2): 1.013 T Score Values are as follows: ----- L1: -0.8 ----- L2: -1.0 ----- L3: -1.2 ----- L4: -2.3 ----- L1-L4: -1.4 Z Score Values are as follows: ----- L1: 0.6 ----- L2: 0.3 ----- L3: 0.1 ----- L4: -0.9 ----- L1-L4: -0.1 Bone mineral density has: decreased -2.5 % since study of: 2020 Bone mineral density about the R hip (g/cm2): 0.700 Bone mineral density about the L hip (g/cm2): 0.641 T Score values are as follows: -----R Neck: -2.4 -----L Neck: -2.9 -----R Total: -1.9 -----L Total: -2.3 Z Score values are as follows: -----R Neck: -1.1 -----L Neck: -1.5 -----R Total: -0.9 -----L Total: -1.3 Bone mineral density has: decreased -4.9 % since study of: 2020 FRAX%s: The graph provided illustrates a 23.7 % chance for a major osteoporotic fx and a 6.4 % chance for the hips probability for fx in 10 years time. IMPRESSION: Osteoporosis (T Score less than -2.5). There is increased fracture risk and therapy is usually indicated based on age. Re-Screen 1-2 years. NOTE: T-SCORE=SD OF THE YOUNG ADULT MEAN.
== END | disposition home or self-care (01) ==
LOC: RADBDWWP 14:49
PROVIDERS: ATTEND Internal Medicine Hematology & Oncology
DX: C50.412 Malignant neoplasm of upper-outer quadrant of left female breast (principal); M81.0 Age-related osteoporosis without current pathological fracture; M85.89 Other specified disorders of bone density and structure, multiple sites; I80.00 Phlebitis and thrombophlebitis of superficial vessels of unspecified lower extremity; I89.0 Lymphedema, not elsewhere classified; G89.3 Neoplasm related pain (acute) (chronic)
CPT/HCPCS: 77080

== ENCOUNTER → 2023-01-30 | Outpatient (CLI) | payer MEDICARE, OTHER ==
--- NOTE | 2023-01-30 09:10 | MM ---
Reason for Exam: Screening (asymptomatic). Last screening mammogram was performed 12 month(s) ago. Patient History: Menarche at age 20. Patient has no children. Postmenopausal. Breast cancer, left, age 57. Previous DCIS pathology result. Ashkenazi Uatsdin. Previous chest radiation therapy at age 57. Previous chemotherapy at age 57. Currently using Estrogen, beginning at age 58 for 2 years. 02/07/2018, Lumpectomy on the Left side. 02/07/2018, Malignant Core Biopsy on the left side. 01/09/2018, Malignant Core Biopsy on the left side. 01/09/2018, Malignant Core Biopsy on the left side. Maternal grandmother had breast cancer, age 71. Maternal cousin had breast cancer, age 38. Maternal aunt had breast cancer, age 40. Prior Study Comparison: 01/26/2020 Bilateral Diagnostic Mammogram, [facility]. 01/27/2021 Bilateral Diagnostic Mammogram, [facility]. 01/29/2022 Bilateral MG 3D screening mammo w/cad, [facility]. Tissue Density: The breast tissue is heterogeneously dense. This may lower the sensitivity of mammography. Findings: Analyzed By CAD. Surgical clips left breast. Left breast benign appearing consultations There is no suspicious group of microcalcifications or new suspicious mass in either breast. Overall Assessment: Benign, BI-RAD 2 Management: Screening Mammogram of both breasts in [address] [facility] will attempt to contact patient to return for supplemental views and ultrasound if indicated. Patient should continue monthly self-breast exams. A clinical breast exam by your physician is recommended on an annual basis. This exam should not preclude additional follow-up of suspicious palpable abnormalities. Note on Anju scores and lifetime risk: 1. A Anju score greater than 3% is considered moderate risk. If this is the case, consider specialist referral to assess eligibility for a risk reducing agent. 2. If overall lifetime risk for the development of breast cancer is 20% or higher, the patient may qualify for future screening with alternating mammogram and breast MRI. Electronically signed and approved by: Otis Edge DO
== END | disposition home or self-care (01) ==
LOC: RADMAMWWP 07:17
PROVIDERS: ATTEND Internal Medicine Hematology & Oncology
DX: Z12.31 Encounter for screening mammogram for malignant neoplasm of breast (principal); Z78.0 Asymptomatic menopausal state; Z80.3 Family history of malignant neoplasm of breast; Z85.3 Personal history of malignant neoplasm of breast
CPT/HCPCS: 77063; 77067

== ENCOUNTER 2024-07-24 13:39 | Emergency (ER) | payer MEDICARE, OTHER ==
[2024-07-24 13:45] VITALS: RESP 20
--- NOTE | 2024-07-24 14:51 | US ---
EXAMINATION TYPE: US venous doppler duplex LE RT DATE OF EXAM: 07/24/2024 2:44 PM COMPARISON: NONE CLINICAL INDICATION: Female, 63 years old with history of pain; No redness, no injury. Calf pain. , Pain TECHNIQUE: The lower extremity deep venous system is examined utilizing real time linear array sonog neva with graded compression, color doppler sonography, and spectral doppler. SIDE PERFORMED: Right FINDINGS: VESSELS IMAGED: Common Femoral Vein Deep Femoral Vein Greater Saphenous Vein * Femoral Vein Popliteal Vein Small Saphenous Vein * Proximal Calf Veins (* superficial vessels) Right Leg: Negative for DVT, Color Doppler imaging shows patency of the vessels. Spectral waveforms are within normal limits. IMPRESSION: No ultrasound evidence for deep venous thrombosis. [facility], , 07/24/2024 2:49 PM
--- NOTE | 2024-07-24 15:04 | ED ---
Extremity Problem HPI - General Chief complaint: Extremity Problem,Nontraumatic Stated complaint: Possible blood clot in leg Time Seen by Provider: 07/24/24 13:48 Source: patient, RN notes reviewed Mode of arrival: ambulatory Limitations: no limitations - History of Present Illness Initial comments: 63-year-old female presents emergency department complaint of right leg pain. Patient states that she is concerned about possible DVT. She has no history denies any chest pain or shortness of breath denies any redness or notable swelling. She states she measured and felt that it was maybe a little bit bigger. Patient states she has pain from her buttocks that radiates down. Denies any back pain denies any bowel, bladder and cons retention no saddle anesthesias. - Related Data Home Medications Medication Instructions Recorded Confirmed Amoxicillin 875 mg PO Q12HR 02/03/18 02/07/18 Previous Rx's Medication Instructions Recorded Hydrocodone/Acetaminophen [[place] 1 - 2 each PO Q4HR PRN #12 tab 02/07/18 5-325] Allergies Allergy/AdvReac Type Severity Reaction Status Date / Time No Known Allergies Allergy Verified 07/24/24 13:45 Review of Systems ROS Statement: Those systems with pertinent positive or pertinent negative responses have been documented in the HPI. ROS Other: All systems not noted in ROS Statement are negative. Past Medical History Past Medical History: Cancer Additional Past Medical History / Comment(s): current ear sx with antibiotics,chronic ear problems,lt breast carcinoma, [place] syndrome History of Any Multi-Drug Resistant Organisms: None Reported Past Surgical History: Orthopedic Surgery Additional Past Surgical History / Comment(s): 1982 ear surgery-removal styloid bone Past Anesthesia/Blood Transfusion Reactions: Postoperative Nausea & Vomiting (PONV) Past Psychological History: No Psychological Hx Reported Smoking Status: Never smoker Past Alcohol Use History: Daily Past Drug Use History: Marijuana - Past Family History Mother Family Medical History: Myocardial Infarction ([place]) General Exam Limitations: no limitations General appearance: alert, in no apparent distress Head exam: Present: atraumatic, normocephalic, normal inspection Respiratory exam: Present: normal lung sounds bilaterally. Absent: respiratory distress, wheezes, rales, rhonchi, stridor Cardiovascular Exam: Present: regular rate, normal rhythm, normal heart sounds. Absent: systolic murmur, diastolic murmur, rubs, gallop, clicks Extremities exam: Present: other (Lower extremity strength equal bilaterally neurovasc intact equal and ankle warmth) Back exam: Present: normal inspection, full ROM. Absent: tenderness, paraspinal tenderness, vertebral tenderness Neurological exam: Present: alert, reflexes normal. Absent: motor sensory deficit Course Vital Signs 07/24/24 07/24/24 13:43 15:14 Temperature 97.9 F 98 F Pulse Rate 81 80 Respiratory 20 20 Rate Blood Pressure 158/91 145/86 O2 Sat by Pulse 97 98 Oximetry Medical Decision Making - Medical Decision Making Was pt. sent in by a medical professional or institution (, [facility], UNIFORM CAP OPERATOR, urgent care, hospital, or [place] health care facility...) When possible be specific @ -No Did you speak to anyone other than the patient for history (EMS, parent, family, police, friend...)? What history was obtained from this source @ -No Did you review nursing and triage notes (agree or disagree)? Why? @ -I reviewed and agree with nursing and triage notes Were old charts reviewed (outside hosp., previous admission, EMS record, old EKG, old radiological studies, urgent care reports/EKG's, [place] health care facility records)? Report findings @ -No old charts were reviewed Differential Diagnosis (chest pain, altered mental status, abdominal pain women, abdominal pain men, vaginal bleeding, weakness, fever, dyspnea, syncope, headache, dizziness, GI bleed, back pain, seizure, CVA, palpatations, mental health, musculoskeletal)? @ -DVT, lumbar radiculopathy, leg pain, leg contusion EKG interpreted by me (3pts min.). @ -None X-rays interpreted by me (1pt min.). @ -None done CT interpreted by me (1pt min.). @ -None done U/S interpreted by me (1pt. min.). @ -Ultrasound venous Doppler right lower extremity negative for acute DVT What testing was considered but not performed or refused? (CT, X-rays, U/S, labs)? Why? @ -None What meds were considered but not given or refused? Why? @ -None Did you discuss the management of the patient with other professionals (professionals i.e. [facility] Novak, UNIFORM CAP OPERATOR, lab, RT, psych nurse, foster care social worker, crankshaft grinder, teacher, professional security officer, case planner)? Give summary @ -No Was smoking cessation discussed for >3mins.? @ -No Was critical care preformed (if so, how long)? @ -No Were there social determinants of health that impacted care today? How? (Homelessness, low income, unemployed, alcoholism, drug addiction, transportation, low edu. Level, literacy, decrease access to med. care, care home, rehab)? @ -No Was there de-escalation of care discussed even if they declined (Discuss DNR or withdrawal of care, Hospice)? DNR status @ -No What co-morbidities impacted this encounter? (DM, HTN, Smoking, COPD, CAD, Cancer, CVA, ARF, Chemo, Hep., AIDS, mental health diagnosis, sleep apnea, morbid obesity)? @ -None Was patient admitted / discharged? Hospital course, mention meds given and route, prescriptions, significant lab abnormalities, going to OR and other pertinent info. @ -Discharge patient presented for concerns of DVT ultrasound was negative patient symptoms more consistent with lumbar radiculopathy with no red flag symptoms. Patient discharged in stable condition Undiagnosed new problem with uncertain prognosis? @ -No Drug Therapy requiring intensive monitoring for toxicity (Heparin, Nitro, Insulin, Cardizem)? @ -No Were any procedures done? @ -No Diagnosis/symptom? @ -Lumbar radiculopathy Acute, or Chronic, or Acute on Chronic? @ -Acute Uncomplicated (without systemic symptoms) or Complicated (systemic symptoms)? @ -Uncomplicated Side effects of treatment? @ -No Exacerbation, Progression, or Severe Exacerbation? @ -No Poses a threat to life or bodily function? How? (Chest pain, [place], [place], pneumonia, PE, COPD, DKA, ARF, appy, cholecystitis, CVA, Diverticulitis, Homicidal, Suicidal, threat to staff... and all critical care pts) @ -No Disposition Clinical Impression: Right leg pain, Lumbar radiculopathy, acute Disposition: HOME SELF-CARE Condition: Stable Instructions (If sedation given, give patient instructions): Leg Pain (ED) Additional Instructions: Please return to the Emergency Department if symptoms worsen or any other concerns. Is patient prescribed a controlled substance at d/c from ED?: No Referrals: Humble Wu DO [Primary Care Provider] - 1-2 days Time of Disposition: 15:03
[2024-07-24 15:16] VITALS: BP 145/86; PULSE 80; TEMP 98
== END 2024-07-24 15:15 | disposition home or self-care (01) ==
LOC: EC 13:39
DX: M54.16 Radiculopathy, lumbar region (principal); M79.604 Pain in right leg
CPT/HCPCS: 99283

== ENCOUNTER → 2024-08-19 | Outpatient (CLI) | payer MEDICARE, OTHER ==
--- NOTE | 2024-08-20 08:21 | MM ---
Reason for Exam: Screening (asymptomatic). Last mammogram was performed 1 year(s) and 7 month(s) ago. Patient History: Menarche at age 20. Patient has no children. Postmenopausal. Breast cancer, left, age 57. Previous DCIS pathology result. [employer]kenazi Mandaeism. Previous chest radiation therapy at age 57. Previous chemotherapy at age 57. Currently using Estrogen, beginning at age 58 for 2 years. 02/07/2018, Lumpectomy on the Left side. 02/07/2018, Malignant Core Biopsy on the left side. 01/09/2018, Malignant Core Biopsy on the left side. 01/09/2018, Malignant Core Biopsy on the left side. Maternal grandmother had breast cancer, age 71. Maternal cousin had breast cancer, age 38. Maternal aunt had breast cancer, age 40. Prior Study Comparison: 01/27/2021 Bilateral Diagnostic Mammogram, [facility]. 01/29/2022 Bilateral MG 3D screening mammo w/cad, [facility]. 01/30/2023 Bilateral MG 3D screening mammo w/cad, [facility]. Tissue Density: There are scattered areas of fibroglandular density. Findings: Analyzed By CAD. Persistent distortion with surgical clips posterior outer upper aspect left breast. A few benign-appearing large round calcification seen anteriorly in left breast are redemonstrated. There is no suspicious group of microcalcifications or new suspicious mass in either breast. Overall Assessment: Benign, BI-RAD 2 Management: Screening Mammogram of both breasts in 1 year. . Patient should continue monthly self-breast exams. A clinical breast exam by your physician is recommended on an annual basis. This exam should not preclude additional follow-up of suspicious palpable abnormalities. Note on Anju scores and lifetime risk: 1. A Anju score greater than 3% is considered moderate risk. If this is the case, consider specialist referral to assess eligibility for a risk reducing agent. 2. If overall lifetime risk for the development of breast cancer is 20% or higher, the patient may qualify for future screening with alternating mammogram and breast MRI. [facility], , 08/20/2024 8:18 AM. Electronically signed and approved by: Delfin Llanos M.D.
== END | disposition home or self-care (01) ==
LOC: RADMAMWWP 16:24
PROVIDERS: ATTEND Internal Medicine Hematology & Oncology
DX: Z12.31 Encounter for screening mammogram for malignant neoplasm of breast (principal); I80.00 Phlebitis and thrombophlebitis of superficial vessels of unspecified lower extremity; I89.0 Lymphedema, not elsewhere classified; C50.412 Malignant neoplasm of upper-outer quadrant of left female breast; G89.3 Neoplasm related pain (acute) (chronic); Z78.0 Asymptomatic menopausal state; Z80.3 Family history of malignant neoplasm of breast; R92.323 Mammographic fibroglandular density, bilateral breasts
CPT/HCPCS: 77063; 77067